=== PATIENT | female | born 1975 | race Two or more races ===

== ENCOUNTER 2018-09-06 12:08 | Emergency (ER) | payer OTHER ==
[2018-09-06 12:15] VITALS: BP 114/63
--- NOTE | 2018-09-06 12:30 | ED Physician Documentation ---
PD HPI URI - Stated complaint Stated Complaint: SORE THROAT - Chief complaint Chief Complaint: Heent - History obtained from History obtained from: Patient - History of Present Illness Timing - onset: Other (4 days of sore throat with fevers and chills and no cough. Feels like the last time she had strep when she was in college.) Review of Systems Constitutional: reports: Fever, Chills Nose: denies: Rhinorrhea / runny nose Throat: reports: Sore throat Respiratory: denies: Cough PD PAST MEDICAL HISTORY - Past Medical History Past Medical History: No - Past Surgical History Past Surgical History: Yes /[employer]: section, Dilation and currettage - Present Medications Home Medications: Ambulatory Orders Medication Instructions Recorded Confirmed No Known Home Medications 09/06/18 09/06/18 - Allergies Allergies/Adverse Reactions: Allergies Allergy/AdvReac Type Severity Reaction Status Date / Time No Known Drug Allergies Allergy Verified 09/06/18 12:14 - Social History Does the pt smoke?: No Smoking Status: Never smoker Does the pt drink ETOH?: Yes - Immunizations Immunizations are current?: Yes PD ED PE NORMAL - Vitals Vital signs reviewed: Yes - General General: Alert and oriented X 3, No acute distress - HEENT HEENT: Other (Tonsillar pillars are quite red and there is a viral appearing ulcer on the left side. There is no cervical adenopathy.) - Neck Neck: Supple, no meningeal sign - Respiratory Respiratory: No respiratory distress, Clear bilaterally - Abdomen Abdomen: Non tender - Derm Derm: No rash - Neuro Neuro: Alert and oriented X 3, Normal speech - Psych Psych: Normal mood, Normal affect Results - Vitals Vitals: Vital Signs - 24 hr 09/06/18 12:13 Temperature 36.1 C L Heart Rate 72 Respiratory 15 Rate Blood Pressure 114/63 O2 Saturation 100 Oxygen O2 Source Room air - Labs Labs: Laboratory Tests 09/06/18 12:16 Group A Strep Rapid Negative Departure - Departure Disposition: 01 Home, Self Care Clinical Impression: Viral pharyngitis Condition: Good Record reviewed to determine appropriate education?: Yes Instructions: ED Pharyngitis Viral Report Pending Comments: Ibuprofen as needed for pain. Follow-up with your physician and not better if not better in 3-5 days. Return for new or worsening symptoms.
== END 2018-09-06 13:01 | disposition home or self-care (01) ==
LOC: ED 12:08
DX: J02.0 Streptococcal pharyngitis (principal)
CPT/HCPCS: 87070; 87430; 99282; 99283